=== PATIENT | female | born 1955 | race African-American/Black ===

== ENCOUNTER 2016-11-18 02:16 | Emergency (ER) | payer OTHER ==
[~2016-11-18] VITALS: Ht 157.5 cm; Wt 83.9 kg
[~2016-11-18 02:16] MED LIST: TRAMADOL 50 MG50 MG PO
[2016-11-18] MEDS ORDERED: POTASSIUM20 PO (02:29)
[2016-11-18] MEDS ORDERED: DILTIAZEM ER240 MG PO (02:29)
[2016-11-18] MEDS ORDERED: BENICAR HCT 401 EAC1 PO (02:29)
[2016-11-18] MEDS ORDERED: TOPROL XL100 MG PO (02:30)
[2016-11-18] MEDS ORDERED: METFORMIN HCL500 MG PO (02:30)
[2016-11-18 03:36] LABS: ABSOLUTE NEUTROPHILS 3.8 thou/uL (1.4-8.2); BASOPHILS 1.3 % (0.0-2.0); EOSINOPHILS 2.6 % (0.0-3.0); HEMATOCRIT 40.6 % (37.0-47.0); HEMOGLOBIN 13.6 gm/dL (12.0-15.0); LYMPHOCYTES 26.6 % (24.0-44.0); MANUAL DIFF NO; MCH 25.9 pg (26.0-34.0); MCHC 33.6 g/dL (28.0-37.0); MCV 77.2 fL (80.0-100.0); MONOCYTES 8.9 % (1.0-8.0); PLATELET COUNT 233 thou/uL (150-400); POLYS 60.6 % (36.0-66.0); RBC 5.26 mil/uL (4.20-5.00); RDW 13.8 % (10.5-14.5); WBC 6.3 thou/uL (4.0-11.0)
[2016-11-18 03:46] LABS: CALCIUM 9.5 mg/dL (8.5-10.1); POTASSIUM 4.1 mmol/L (3.5-5.1)
[2016-11-18] MEDS ORDERED: KEFLEX500 MG PO (04:34)
[2016-11-18] MEDS ORDERED: NORCO 5-325 TA1 EACH PO (04:34)
[2016-11-18] MEDS ORDERED: BACTRIM DS TAB1 EACH PO (04:34)
[2016-11-18 04:55] VITALS: BP 138/84
== END 2016-11-18 04:56 | disposition home or self-care (01) ==
LOC: ER 02:16
PROVIDERS: Emergency Medicine
DX: L03.116 Cellulitis of left lower limb (principal); I10 Essential (primary) hypertension; E11.9 Type 2 diabetes mellitus without complications; K21.9 Gastro-esophageal reflux disease without esophagitis; Z88.1 Allergy status to other antibiotic agents; Z88.8 Allergy status to other drugs, medicaments and biological substances

== ENCOUNTER 2018-04-04 09:47 | Emergency (ER) | payer OTHER ==
[~2018-04-04] VITALS: Ht 154.9 cm; Wt 83.5 kg
--- NOTE | ~2018-04-04 | EKG ---
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
[~2018-04-04 09:47] MED LIST changes: +BACTRIM DS TAB1 EACH PO; +BENICAR HCT 401 EAC1 PO; +DILTIAZEM ER240 MG PO; +KEFLEX500 MG PO; +METFORMIN HCL500 MG PO; +NORCO 5-325 TA1 EACH PO; +POTASSIUM20 PO; +TOPROL XL100 MG PO
[2018-04-04 10:37] LABS: ABSOLUTE NEUTROPHILS 1.8 thou/uL (1.4-8.2); BASOPHILS 1.3 % (0.0-2.0); EOSINOPHILS 6.2 % (0.0-3.0); HEMATOCRIT 41.4 % (37.0-47.0); HEMOGLOBIN 14.3 gm/dL (12.0-15.0); MCH 26.5 pg (26.0-34.0); MCHC 34.7 g/dL (28.0-37.0); MCV 76.5 fL (80.0-100.0); MONOCYTES 8.9 % (1.0-8.0); PLATELET COUNT 257 thou/uL (150-400); POLYS 45.6 % (36.0-66.0); RBC 5.41 mil/uL (4.20-5.00); RDW 14.1 % (10.5-14.5)
[2018-04-04 10:45] LABS: ANION GAP 9 mmol/L (7-16); BUN 19 mg/dL (7-18); CALCIUM 9.7 mg/dL (8.5-10.1); CHLORIDE 100 mmol/L (98-107); CO2 28 mmol/L (21-32); CREATININE 1.1 mg/dL (0.6-1.0); GLUCOSE 189 mg/dL (74-106); POTASSIUM 3.6 mmol/L (3.5-5.1); SODIUM 137 mmol/L (136-145)
[2018-04-04 10:54] LABS: ALBUMIN 4.1 g/dL (3.4-5.0); LIPASE 247 U/L (73-393); SGOT 42 U/L (15-37); SGPT 48 U/L (30-65); TOTAL BILIRUBIN 0.6 mg/dL (<0.1-1.0); TOTAL PROTEIN 7.8 g/dL (6.4-8.2); TROPONIN-I <0.06 ng/mL (<0.06)
[2018-04-04 10:55] LABS: URINE BILIRUBIN NEGATIVE (Negative); URINE BLOOD NEGATIVE (Negative); URINE CLARITY CLEAR; URINE COLOR YELLOW; URINE GLUCOSE-RANDOM* NEGATIVE (Negative); URINE KETONES NEGATIVE (Negative); URINE LEUKOCYTES-REFLEX NEGATIVE (Negative); URINE NITRITE-REFLEX NEGATIVE (Negative); URINE PROTEIN (DIPSTICK) TRACE (Negative); URINE UROBILINOGEN 0.2 E.U./dl (0.2-1.0)
[2018-04-04] MEDS ORDERED: ZOFRAN ODT4 MG PO (12:05)
[2018-04-04 17:20] VITALS: BP 151/87
== END 2018-04-04 12:55 | disposition home or self-care (01) ==
LOC: ER 09:47
PROVIDERS: Physician Assistant
DX: R10.12 Left upper quadrant pain (principal); R10.13 Epigastric pain; R11.0 Nausea; R00.2 Palpitations; I10 Essential (primary) hypertension; E11.9 Type 2 diabetes mellitus without complications; K21.9 Gastro-esophageal reflux disease without esophagitis; Z88.1 Allergy status to other antibiotic agents; Z88.8 Allergy status to other drugs, medicaments and biological substances

== ENCOUNTER 2020-09-28 19:13 | Emergency (ER) | payer OTHER ==
[~2020-09-28] VITALS: Ht 157.5 cm; Wt 85.8 kg
[~2020-09-28 19:13] MED LIST changes: +ZOFRAN ODT4 MG PO
[2020-09-28 20:18] LABS: ABSOLUTE NEUTROPHILS 3.7 thou/uL (1.4-8.2); HEMATOCRIT 38.1 % (37.0-47.0); HEMOGLOBIN 12.7 gm/dL (12.0-15.0); LYMPHOCYTES 28.7 % (24.0-44.0); MCH 25.8 pg (26.0-34.0); MCHC 33.2 g/dL (28.0-37.0); MCV 77.6 fL (80.0-100.0); MONOCYTES 8.5 % (1.0-8.0); PLATELET COUNT 221 thou/uL (150-400); POLYS 57.8 % (36.0-66.0); RBC 4.92 mil/uL (4.20-5.00); WBC 6.4 thou/uL (4.0-11.0)
[2020-09-28 20:25] LABS: CALCIUM 9.7 mg/dL (8.5-10.1)
[2020-09-28] MEDS ORDERED: KEFLEX500 M1 PO (21:38)
[2020-09-28] MEDS ORDERED: MOBIC15 MG PO (21:38)
[2020-09-28 21:46] VITALS: BP 142/76
== END 2020-09-28 21:49 | disposition home or self-care (01) ==
LOC: ER 19:13
PROVIDERS: Emergency Medicine
DX: L03.116 Cellulitis of left lower limb (principal); I10 Essential (primary) hypertension; E11.9 Type 2 diabetes mellitus without complications; K21.9 Gastro-esophageal reflux disease without esophagitis; Z79.899 Other long term (current) drug therapy; Z87.891 Personal history of nicotine dependence; Z88.1 Allergy status to other antibiotic agents; Z88.8 Allergy status to other drugs, medicaments and biological substances